=== PATIENT | male | born 1950 | race Caucasian/White ===

== ENCOUNTER 2023-10-01 12:42 | Inpatient (IN) | payer MEDICARE ==
[~2023-10-01] VITALS: Ht 188 cm; Wt 95.3 kg
[2023-10-01] MEDS: ZIPRASIDONE 20 MG CAPSULE PO SCH (13:00)
[2023-10-01] MEDS ORDERED: OLANZAPINE 10 MG VIAL IM ONE (13:06)
[2023-10-01] MEDS: OLANZAPINE 10 MG VIAL IM ONE (13:10)
[2023-10-01 13:32] LABS: BASOPHILS % (AUTO) 0.5 % (0.0-2.0); EOSINOPHILS # (AUTO) 0.1 K/uL (0.0-0.7); EOSINOPHILS % (AUTO) 0.8 % (0.0-6.0); HEMATOCRIT 36 % (39-51); HEMOGLOBIN 12.2 g/dL (13.5-17.5); LYMPHOCYTES # (AUTO) 0.8 K/uL (0.8-4.8); LYMPHOCYTES % (AUTO) 11.5 % (20.0-44.0); MEAN CORPUSCULAR HEMOGLOBIN 35 PG (26.0-33.0); MEAN CORPUSCULAR HGB CONC 34 g/dl (31.0-36.0); MEAN CORPUSCULAR VOLUME 102 fL (80-96); MONOCYTES # (AUTO) 0.5 K/uL (0.1-1.30); MONOCYTES % (AUTO) 8.3 % (2.0-12.0); NEUTROPHILS # (AUTO) 5.1 K/uL (1.8-8.9); NEUTROPHILS % (AUTO) 78.9 % (43.0-81.0); PLATELET COUNT (AUTO) 214 K/uL (150-450); RED BLOOD CELL COUNT(AUTO) 3.52 MIL/uL (4.5-6.0); RED CELL DISTRIBUTION WIDTH 12.4 % (11.5-15.0); WHITE BLOOD COUNT (AUTO) 6.5 K/uL (4.3-11.0)
[2023-10-01 13:37] LABS: CALCIUM, SERUM 8.8 mg/dL (8.5-10.1); CARBON DIOXIDE 27 mmol/L (21-32); CHLORIDE 102 mmol/L (98-107); GLUCOSE 109 mg/dL (74-106); POTASSIUM 3.9 mmol/L (3.5-5.1); SODIUM SERUM 137 mmol/L (136-145); UREA NITROGEN, BLOOD 14 mg/dL (7-18)
[2023-10-01 13:43] LABS: ALANINE AMINOTRANSFERASE 17 U/L (12-78); ALBUMIN 3.2 g/dL (3.4-5.0); ALCOHOL, BLOOD < 3 mg/dL (0-10); ALKALINE PHOSPHATASE 76 U/L (46-116); ASPARTATE AMINOTRANSFERASE 15 U/L (15-37); BILIRUBIN,DIRECT 0.1 mg/dL (0.0-0.2); BILIRUBIN,TOTAL 0.4 mg/dL (0.2-1.0); TOTAL PROTEIN, SERUM 6.7 g/dL (6.4-8.2)
[2023-10-01 13:51] LABS: ACETAMINOPHEN <10 ug/ml (10-30); SALICYLATE < 0.2 mg/dL (2.8-20.0)
[2023-10-01] MEDS ORDERED: TRIA15OI2 TP (14:10)
[2023-10-01] MEDS ORDERED: MELA3TAB41 PO (14:10)
[2023-10-01] MEDS ORDERED: DIVA-78 PO (14:10)
[2023-10-01] MEDS ORDERED: VALP250C3 PO (14:10)
[2023-10-01 20:08] VITALS: BP 126/65; TEMP 97.5; O2SAT 97
[2023-10-01] MEDS ORDERED: MAG HYDROX/AL HYDROX/SIMETH 30 ML UDC PO PRN (20:30)
[2023-10-01] MEDS ORDERED: MAGNESIUM HYDROXIDE 30 ML UDC PO PRN (20:30)
[2023-10-01] MEDS ORDERED: ACETAMINOPHEN 325 MG TABLET PO PRN (20:30)
[2023-10-01] MEDS: BLOOD SUGAR DIAGNOSTIC 1 EACH STRIP IN ONE (20:41)
[2023-10-01] MEDS: LORAZEPAM 0.5 MG TABLET PO PRN (22:57)
[2023-10-02 07:52] LABS: ALBUMIN 3.2 g/dL (3.4-5.0); BILIRUBIN,TOTAL 0.5 mg/dL (0.2-1.0); CALCIUM, SERUM 8.9 mg/dL (8.5-10.1); CREATININE 0.9 mg/dL (0.6-1.3); POTASSIUM 4.3 mmol/L (3.5-5.1); TOTAL PROTEIN, SERUM 7.1 g/dL (6.4-8.2)
[2023-10-02 08:00] VITALS: BP 92/73; TEMP 97.7; O2SAT 100
[2023-10-02] MEDS: DIVALPROEX SODIUM 125 MG CAP.SPRINK PO SCH (13:06)
[2023-10-02] MEDS: OLANZAPINE ZYDIS 5 MG TAB.RAPDIS PO SCH (13:06)
[2023-10-02 16:00] VITALS: BP 140/121; TEMP 98; O2SAT 94
[2023-10-02 20:17] VITALS: BP 152/96; TEMP 98.4; O2SAT 96
[2023-10-02] MEDS: ZOLPIDEM TARTRATE 5 MG TABLET PO PRN (23:21)
[2023-10-03 08:00] VITALS: BP 128/80; TEMP 98.7; O2SAT 98
[2023-10-03 16:00] VITALS: BP 112/74; TEMP 98.6; O2SAT 98
[2023-10-03] MEDS: ENSURE ENLIVE 237 ML LIQUID (VANILLA) PO SCH (16:31)
[2023-10-03] MEDS: CLOTRIMAZOLE/BETAMETASONE DIPROPIONATE 15 GM TUBE TP SCH (16:33)
[2023-10-03 20:00] VITALS: BP 115/99; TEMP 97.9; O2SAT 99
[2023-10-04 08:00] VITALS: BP 128/87; TEMP 98; O2SAT 94
[2023-10-04 16:00] VITALS: BP 131/84; TEMP 98; O2SAT 94
[2023-10-04 20:00] VITALS: BP 138/88; TEMP 98.1; O2SAT 95
[2023-10-04] MEDS: OLANZAPINE ZYDIS 5 MG TAB.RAPDIS PO SCH (21:33)
[2023-10-05] MEDS: LORAZEPAM 1 MG TABLET PO PRN (02:06)
[2023-10-05 08:00] VITALS: BP 131/87; TEMP 97.8; O2SAT 98
[2023-10-05 16:00] VITALS: BP 117/98; TEMP 97.8; O2SAT 96
[2023-10-05 20:00] VITALS: BP 124/76; TEMP 98.1; O2SAT 98
[2023-10-05] MEDS: diphenhydrAMINE HCL 50 MG CAPSULE PO PRN (23:44)
[2023-10-06] MEDS: OLANZAPINE ZYDIS 5 MG TAB.RAPDIS PO SCH (09:00)
[2023-10-06 09:11] VITALS: BP 109/64; TEMP 97.7; O2SAT 100
[2023-10-06 16:43] VITALS: BP 109/64; TEMP 97.5; O2SAT 84
[2023-10-06 20:00] VITALS: BP 115/68; TEMP 98.4; O2SAT 99
[2023-10-07 08:00] VITALS: BP 127/90; TEMP 98.7; O2SAT 95
[2023-10-07 13:42] LABS: BASOPHILS % (AUTO) 0.6 % (0.0-2.0); EOSINOPHILS # (AUTO) 0.2 K/uL (0.0-0.7); EOSINOPHILS % (AUTO) 3.4 % (0.0-6.0); HEMATOCRIT 36 % (39-51); HEMOGLOBIN 12.7 g/dL (13.5-17.5); LYMPHOCYTES # (AUTO) 0.8 K/uL (0.8-4.8); LYMPHOCYTES % (AUTO) 15.5 % (20.0-44.0); MEAN CORPUSCULAR HEMOGLOBIN 36 PG (26.0-33.0); MEAN CORPUSCULAR HGB CONC 35 g/dl (31.0-36.0); MEAN CORPUSCULAR VOLUME 103 fL (80-96); MONOCYTES # (AUTO) 0.5 K/uL (0.1-1.30); NEUTROPHILS # (AUTO) 3.5 K/uL (1.8-8.9); NEUTROPHILS % (AUTO) 70.5 % (43.0-81.0); PLATELET COUNT (AUTO) 172 K/uL (150-450); RED BLOOD CELL COUNT(AUTO) 3.53 MIL/uL (4.5-6.0); RED CELL DISTRIBUTION WIDTH 12.3 % (11.5-15.0)
[2023-10-07 16:00] VITALS: BP 129/89; TEMP 98; O2SAT 95
[2023-10-07 20:39] VITALS: BP 103/91; TEMP 98.2; O2SAT 95
[2023-10-08 06:38] LABS: APPEARANCE,URINE SLIGHTLY CLOUDY (CLEAR); BILIRUBIN,URINE NEGATIVE (NEGATIVE); BLOOD, URINE NEGATIVE Ery/uL (NEGATIVE); COLOR,URINE YELLOW (YELLOW); KETONES,URINE TRACE mg/dL (NEGATIVE); LEUKOCYTE ESTERASE ,URINE NEGATIVE (NEGATIVE); NITRITE, URINE NEGATIVE (NEGATIVE); PROTEIN,URINE NEGATIVE (NEGATIVE); UGLUCOSE NEGATIVE (NEGATIVE); UROBILINOGEN,URINE 0.2 EU/dL (0.2)
[2023-10-08 06:39] LABS: ADD URINE CULTURE NO; BACTERIA,URINE None seen /HPF (None Seen); RBC,URINE 0-2 /HPF (0-2); SQUAMOUS EPITHELIAL CELL,UR Rare /HPF (None Seen); WBC,URINE 0-2 /HPF (0-3)
[2023-10-08 08:00] VITALS: BP 131/70; TEMP 98.7; O2SAT 99
[2023-10-08 16:00] VITALS: BP 100/57; TEMP 98.6; O2SAT 97
[2023-10-08 20:42] VITALS: BP 131/57; TEMP 98; O2SAT 98
[2023-10-09 08:00] VITALS: BP 110/64; TEMP 97.6; O2SAT 96
[2023-10-09 16:06] VITALS: BP 112/74; TEMP 97.7; O2SAT 99
[2023-10-09 20:43] VITALS: BP 116/93; TEMP 98.2; O2SAT 98
[2023-10-10] MEDS: TEMAZEPAM 15 MG CAPSULE PO PRN (02:04)
[2023-10-10 08:00] VITALS: BP 111/59; TEMP 97.9; O2SAT 96
[2023-10-10 16:00] VITALS: BP 127/83; TEMP 98.7; O2SAT 98
[2023-10-10 21:07] VITALS: BP 113/84; TEMP 98.4; O2SAT 97
[2023-10-11 08:00] VITALS: BP 138/101; TEMP 97.6; O2SAT 95
[2023-10-11 16:00] VITALS: BP 131/90; TEMP 98.1; O2SAT 98
[2023-10-11 20:00] VITALS: BP 135/83; TEMP 98.3; O2SAT 95; O2SAT 98
[2023-10-12 08:00] VITALS: BP 122/98; TEMP 97.9; O2SAT 96
[2023-10-12 16:00] VITALS: BP 124/86; TEMP 97.7; O2SAT 99
[2023-10-12 20:00] VITALS: BP 124/97; TEMP 98.1; O2SAT 98
[2023-10-12] MEDS: OLANZAPINE ZYDIS 5 MG TAB.RAPDIS PO SCH (22:02)
[2023-10-13 08:00] VITALS: BP 115/103; TEMP 98.1; O2SAT 100
[2023-10-13 08:24] LABS: THYROID STIMULATING HORMONE 3.181 uIU/mL (0.358-3.74)
[2023-10-13 16:00] VITALS: BP 90/68; TEMP 98.6; O2SAT 94
[2023-10-13 20:00] VITALS: BP 125/99; TEMP 98.1; O2SAT 99
[2023-10-14 08:00] VITALS: BP 109/61; TEMP 98.1; O2SAT 97
[2023-10-14 16:00] VITALS: BP 105/70; TEMP 97.6; O2SAT 97
[2023-10-14 20:18] VITALS: BP 96/76; TEMP 97.7; O2SAT 98
[2023-10-14 22:09] VITALS: BP 110/70; TEMP 98.1; O2SAT 96
[2023-10-15 08:00] VITALS: BP 100/63; TEMP 98.1; O2SAT 96
[2023-10-15 16:00] VITALS: BP 137/78; TEMP 98.6; O2SAT 95
[2023-10-15 20:31] VITALS: BP 105/70; TEMP 98.4; O2SAT 99
[2023-10-16 07:29] LABS: CALCIUM, SERUM 9.4 mg/dL (8.5-10.1); CREATININE 0.9 mg/dL (0.6-1.3); MAGNESIUM 2.1 mg/dL (1.8-2.4); POTASSIUM 3.7 mmol/L (3.5-5.1)
[2023-10-16 08:00] VITALS: BP 110/73; TEMP 97.7; O2SAT 97
[2023-10-16 16:01] VITALS: BP 98/75; TEMP 98; O2SAT 94
[2023-10-16 20:10] VITALS: BP 125/81; TEMP 98.2; O2SAT 99
[2023-10-16] MEDS: OLANZAPINE ZYDIS 5 MG TAB.RAPDIS PO SCH (21:29)
[2023-10-17 08:00] VITALS: BP 101/58; TEMP 98.1; O2SAT 98
[2023-10-17 16:00] VITALS: BP 103/74; TEMP 98.2; O2SAT 97
[2023-10-17 20:08] VITALS: BP 123/89; TEMP 98; O2SAT 98
[2023-10-18 08:00] VITALS: BP_SYST 110; BP_SYST 123; BP_DIAS 59; BP_DIAS 67; TEMP 98.6; O2SAT 95
[2023-10-18 16:00] VITALS: BP_SYST 117; BP_SYST 90; BP_DIAS 52; BP_DIAS 66; TEMP 97.6; O2SAT 94; O2SAT 96
[2023-10-18 20:00] VITALS: BP 115/69; TEMP 98.8; O2SAT 99
[2023-10-19 08:00] VITALS: BP 105/67; TEMP 97.8; O2SAT 97
== END 2023-10-19 13:30 | DRG 885 ==
LOC: ER 13:36 → GPS 16:06
PROVIDERS: ADMIT Psychiatry & Neurology Psychiatry; ATTEND Nurse Practitioner Family
DX: F29 Unspecified psychosis not due to a substance or known physiological condition (principal); F03.92 Unspecified dementia, unspecified severity, with psychotic disturbance; F03.93 Unspecified dementia, unspecified severity, with mood disturbance; D69.3 Immune thrombocytopenic purpura; F03.918 Unspecified dementia, unspecified severity, with other behavioral disturbance; Z20.822 Contact with and (suspected) exposure to COVID-19; Z73.6 Limitation of activities due to disability; F39 Unspecified mood [affective] disorder; F03.90 Unspecified dementia, unspecified severity, without behavioral disturbance, psychotic disturbance, mood disturbance, and anxiety; B35.3 Tinea pedis; L98.9 Disorder of the skin and subcutaneous tissue, unspecified; Z79.899 Other long term (current) drug therapy; Z95.0 Presence of cardiac pacemaker
CPT/HCPCS: 36415; 71045-TC; 80048-TC; 80053-TC; 80061-TC; 80076-TC; 80164-TC; 81001; 82607-TC; 82728-TC; 82962-TC; 83735-TC; 84443-TC; 85025-TC; 87081-TC; 97110-TC; 97112-TC; 97116-TC; 97530-TC; G0480; J3490; Q0163